=== PATIENT | male | born 1955 | race Caucasian/White ===

== ENCOUNTER 2022-09-30 08:50 | Inpatient (IN) ==
[2022-09-30 11:50] LABS: ABS Lymphocytes 0.3 10^3/ul (1.0-4.8); ABS Monocytes 0.3 10^3/ul (0-0.8); ABS Neutrophils 6.8 10^3/ul (1.5-7.7); Hematocrit 41 % (42-52); Hemoglobin 14.1 g/dL (14.0-18.0); Lymphocyte % 4.1 %; Mean Corpuscular HGB Conc 34 g/dL (31-36); Mean Corpuscular Hemoglobin 29 pg (27-31); Mean Corpuscular Volume 86 fL (80-94); Mean Platelet Volume 8.2 fL (7.4-10.4); Nucleated Red Blood Cells % 0.2; Platelet Count 142 10^3/uL (150-450); Red Blood Count 4.81 10^6 /uL (4.18-5.48); Red Cell Distribution Width 14 % (10-15); White Blood Count 7.4 10^3/uL (3.5-10.8)
[2022-09-30] MEDS ORDERED: Lactated Ringers 1000 ml BAG 1,000 ML IV SCH (12:00)
[2022-09-30 12:11] LABS: High Sens Troponin Baseline 4 pg/mL (<20)
[2022-09-30 12:20] LABS: Urine Appearance Clear; Urine Bilirubin Negative (Negative); Urine Blood Negative (Negative); Urine Color Yellow; Urine Glucose Negative (Negative); Urine Ketones Negative (Negative); Urine Nitrite Negative (Negative); Urine Protein Negative (Negative); Urine Specific Gravity 1.023 (1.002-1.030); Urine Urobilinogen 0.2 (Negative) (Negative); Urine pH 5.5 (5.0-9.0)
[2022-09-30] MEDS ORDERED: Piperacillin/Tazobac ADVAN 3.375 GM in NS 0.9% 100 ml BAG 100 ML IV ONE (12:23)
[2022-09-30 12:45] LABS: ALT 35 U/L (7-52); AST 27 U/L (13-39); Albumin 3.7 g/dL (3.2-5.2); Albumin/Globulin Ratio 1.7 (1-3); Alkaline Phosphatase 107 U/L (35-149); Anion Gap 8 mmol/L (2-11); Blood Urea Nitrogen 14 mg/dL (6-24); C Reactive Protein 151.31 mg/L (<8.01); CO2 Carbon Dioxide 23 mmol/L (22-32); Calcium 7.5 mg/dL (8.6-10.3); Chloride 103 mmol/L (101-111); Cholesterol 141 mg/dL; Creatine Kinase 69 U/L (10-223); Globulin 2.2 g/dL (2-4); Glucose 114 mg/dL (70-100); HDL Cholesterol 31.8 mg/dL; LDL Cholesterol 99 mg/dL; Magnesium 1.5 mg/dL (1.9-2.7); Phosphorus 2.8 mg/dL (2.5-5.0); Potassium 3.8 mmol/L (3.5-5.0); Sodium 134 mmol/L (135-145); Total Iron Binding Capacity 286 mcg/dL (250-450); Total Protein 5.9 g/dL (6.4-8.9); Transferrin 204 mg/dL (203-362); Triglycerides 51 mg/dL; eGFR CKD-EPI 94.8 (>60)
[2022-09-30 12:53] LABS: % Iron Saturation 7 % (15-55); Iron < 20 ug/dL (50-212); Unsaturated Iron Binding 266 ug/dL
[2022-09-30] MEDS: Enoxaparin 40 MG/0.4 ML SYR SUBCUT SCH (12:55)
[2022-09-30 12:59] LABS: TSH Ultra Thyroid Stim Horm 0.64 mcIU/mL (0.34-5.60)
[2022-09-30] MEDS ORDERED: Zosyn per Pharmacy NOTE FOLLOW UP SCH (13:00)
[2022-09-30 13:01] LABS: Free T4 0.82 ng/dL (0.61-1.12)
[2022-09-30 13:14] LABS: High Sensitivity Troponin 1 Hr 3 pg/mL (<20)
[2022-09-30 13:48] LABS: Erythrocyte Sed Rate 23 mm/Hr (0-19)
[2022-09-30] MEDS ORDERED: Magnesium Sulf 4 GM/100 ML IV 4,000 MG/100 ML BAG IVPB ONE (14:25)
[2022-09-30] MEDS: ZOSYN 3.375 GM Q8H per EXTENDED INFUSION IV SCH (18:09)
[2022-10-01] MEDS: ZOSYN 3.375 GM Q8H per EXTENDED INFUSION IV SCH ×4 (01:30→18:32)
[2022-10-01 05:00] LABS: ABS Lymphocytes 0.4 10^3/ul (1.0-4.8); ABS Monocytes 0.3 10^3/ul (0-0.8); ABS Neutrophils 4.4 10^3/ul (1.5-7.7); Eosinophil % 0.6 %; Hematocrit 37 % (42-52); Hemoglobin 12.7 g/dL (14.0-18.0); Lymphocyte % 8.3 %; Mean Corpuscular HGB Conc 34 g/dL (31-36); Mean Corpuscular Hemoglobin 29 pg (27-31); Mean Corpuscular Volume 87 fL (80-94); Mean Platelet Volume 7.8 fL (7.4-10.4); Platelet Count 132 10^3/uL (150-450); Red Cell Distribution Width 14 % (10-15); White Blood Count 5.1 10^3/uL (3.5-10.8)
[2022-10-01 05:59] LABS: Calcium 7.6 mg/dL (8.6-10.3); Magnesium 2.4 mg/dL (1.9-2.7); Phosphorus 1.9 mg/dL (2.5-5.0); Potassium 3.8 mmol/L (3.5-5.0); eGFR CKD-EPI 81.1 (>60)
[2022-10-01] MEDS ORDERED: Potassium Phosphate IV 15 MMOLE in NS 0.9% 250 ml 250 ML IVPB ONE (06:45)
[2022-10-01] MEDS: Enoxaparin 40 MG/0.4 ML SYR SUBCUT SCH (12:09)
[2022-10-01] MEDS: Acetaminophen IV 1 GM/100ML 1,000 MG/100 ML BAG IV PRN (16:27)
[2022-10-01] MEDS: Linezolid 600 MG IVPREMIX(*) 600 MG/300 ML BAG IVPB SCH (17:20)
[2022-10-01] MEDS: DOXYcycline 100 MG in NS 0.9% 250 ml 250 ML IVPB SCH (17:23)
[2022-10-01 17:33] LABS: Folate 11.17 ng/mL (5.90-24.80)
[2022-10-01 22:41] LABS: Urine Appearance Clear; Urine Bilirubin Negative (Negative); Urine Blood Negative (Negative); Urine Color Yellow; Urine Glucose Negative (Negative); Urine Ketones Negative (Negative); Urine Specific Gravity 1.025 (1.005-1.030)
[2022-10-01 22:42] LABS: Urine Nitrite Negative (Negative); Urine Protein 1+ (30 mg/dL) (Negative); Urine Urobilinogen 0.2 (Negative) (Negative); Urine pH 5.5 (5.0-9.0)
[2022-10-01 22:45] LABS: Urine Bacteria Absent (Absent); Urine Red Blood Cell Absent (Absent); Urine White Blood Cell Trace(0-5/hpf) (Absent)
[2022-10-02] MEDS: ZOSYN 3.375 GM Q8H per EXTENDED INFUSION IV SCH ×3 (01:56→17:55)
[2022-10-02] MEDS: DOXYcycline 100 MG in NS 0.9% 250 ml 250 ML IVPB SCH (03:52)
[2022-10-02 04:15] LABS: ABS Eosinophils 0.1 10^3/ul (0-0.6); ABS Lymphocytes 0.5 10^3/ul (1.0-4.8); ABS Monocytes 0.3 10^3/ul (0-0.8); ABS Neutrophils 4.2 10^3/ul (1.5-7.7); Eosinophil % 2.5 %; Hematocrit 34 % (42-52); Hemoglobin 11.6 g/dL (14.0-18.0); Lymphocyte % 9.7 %; Mean Corpuscular HGB Conc 35 g/dL (31-36); Mean Corpuscular Hemoglobin 29 pg (27-31); Mean Corpuscular Volume 85 fL (80-94); Mean Platelet Volume 7.6 fL (7.4-10.4); Platelet Count 132 10^3/uL (150-450); Red Blood Count 3.98 10^6 /uL (4.18-5.48); Red Cell Distribution Width 14 % (10-15); White Blood Count 5.2 10^3/uL (3.5-10.8)
[2022-10-02 04:57] LABS: Calcium 7.8 mg/dL (8.6-10.3); Potassium 3.9 mmol/L (3.5-5.0); eGFR CKD-EPI 95.8 (>60)
[2022-10-02] MEDS: Linezolid 600 MG IVPREMIX(*) 600 MG/300 ML BAG IVPB SCH (05:03)
[2022-10-02] MEDS ORDERED: ceFAZolin SYR FLUSH 1 GM/10 ML for pocket flush (cardiology) FLUSH ONE (10:12)
[2022-10-02] MEDS ORDERED: Midazolam 5 mg/5 ml VIAL 1 mg/ml 5 ml VIAL (5 mg) ONE (10:41)
[2022-10-02] MEDS ORDERED: fentaNYL 100 mcg/2 ml 50 MCG/ML VIAL ONE (10:42)
[2022-10-02 10:48] LABS: Phosphorus 2.3 mg/dL (2.5-5.0)
[2022-10-02] MEDS ORDERED: Lidocaine 1% VIAL 10 MG/ML VIAL 30 ML ONE (11:17)
[2022-10-02] MEDS ORDERED: Cyanocobalamin INJ 1,000 MCG/ML VIAL 1 ML VIAL IM ONE ×2 (11:30→15:25)
[2022-10-02] MEDS ORDERED: Ferric Gluconate IV 125 MG in NS 0.9% 100 ml BAG 100 ML IVPB ONE (15:20)
[2022-10-03] MEDS: ZOSYN 3.375 GM Q8H per EXTENDED INFUSION IV SCH ×2 (02:28→10:35)
[2022-10-03] MEDS: Acetaminophen IV 1 GM/100ML 1,000 MG/100 ML BAG IV PRN (02:31)
[2022-10-03 05:45] LABS: ABS Eosinophils 0.1 10^3/ul (0-0.6); ABS Lymphocytes 0.6 10^3/ul (1.0-4.8); ABS Monocytes 0.3 10^3/ul (0-0.8); ABS Neutrophils 3.2 10^3/ul (1.5-7.7); Eosinophil % 3.1 %; Hematocrit 34 % (42-52); Hemoglobin 11.5 g/dL (14.0-18.0); Mean Corpuscular HGB Conc 34 g/dL (31-36); Mean Corpuscular Hemoglobin 29 pg (27-31); Mean Corpuscular Volume 86 fL (80-94); Mean Platelet Volume 7.7 fL (7.4-10.4); Platelet Count 148 10^3/uL (150-450); Red Blood Count 3.96 10^6 /uL (4.18-5.48); Red Cell Distribution Width 14 % (10-15); White Blood Count 4.3 10^3/uL (3.5-10.8)
[2022-10-03] MEDS ORDERED: Potassium Chlor 20 meq TAB.ER PO ONE (05:47)
[2022-10-03 06:23] LABS: Potassium 3.9 mmol/L (3.5-5.0)
[2022-10-03 06:29] LABS: eGFR CKD-EPI 101.2 (>60)
[2022-10-03] MEDS ORDERED: Amoxicillin/Clavul 875/125 TAB (Augmentin 875 tab) PO SCH (11:00)
[2022-10-03 17:51] VITALS: BP 106/77
[2022-10-04 22:17] LABS: Anaplasma phagocytophilum Negative (Negative); B. miyamotoi PCR, B Negative (Negative); Babesia divergens/MO-1 Negative (Negative); Babesia ducani Negative (Negative); Ehrlichia chaffeensis Negative (Negative); Ehrlichia ewingii/canis Negative (Negative); Ehrlichia muris eauclairensis Negative (Negative)
== END 2022-10-03 15:23 | disposition home or self-care (01) | DRG 242 ==
LOC: ED 08:50 → EDHOLD 10:46 → ICU 13:17
PROVIDERS: ADMIT Internal Medicine; ATTEND Internal Medicine